=== PATIENT | male | born 1970 | race Caucasian/White ===

== ENCOUNTER 2021-02-09 06:29 | Day surgery (SDC) | payer BC ==
[2021-02-08 16:36] LABS: Potassium 3.5 mmol/L (3.5-5.1)
[2021-02-08 16:52] LABS: Absolute Lymphocytes (CBC) 2.1 K/uL (0.7-4.9); Basophils % 0.8 % (0-1.3); Hematocrit 50.8 % (39.6-49.0); Lymphocytes % 30.3 % (15.3-44.8); MPV 7.9 fL (7.6-11.3); RBC Red Blood Cell Count 5.72 M/uL (4.33-5.43)
[2021-02-08 17:28] LABS: Urine Appearance CLEAR; Urine Bilirubin NEGATIVE (NEG); Urine Blood TRACE (NEG); Urine Color YELLOW; Urine Glucose NEGATIVE (NEG); Urine Protein NEGATIVE (NEG); Urine Urobilinogen 0.2 mg/dL (0.2-1.0); Urine pH 6.5 (5.0-7.0)
[2021-02-08 17:30] LABS: Urine Microscopic Reflex ORDER UMIC
[2021-02-08 17:51] LABS: Urine Bacteria <20 /HPF (NONE SEEN); Urine RBC <5 /HPF (NONE SEEN)
[2021-02-09] MEDS ORDERED: Ringers Lactate 1,000 ML IV ONE (07:02)
[2021-02-09] MEDS ORDERED: CEFAZOLIN/SWI 1gm 0 GM/0 ML SYR ONE (07:03)
[2021-02-09] MEDS ORDERED: Gentamicin Inj 240 MG in NA CHLORIDE 0.9% 100 ML IV ONE (07:15)
[2021-02-09] MEDS ORDERED: AMPICILLIN SODIUM 2 GM in NA CHLORIDE 0.9% 100 ML IVPB ONE (07:15)
[2021-02-09] MEDS ORDERED: propofoL 200 MG/20 ML VIAL IV ONE (07:30)
[2021-02-09] MEDS ORDERED: FENTANYL CITR 100 MCG/2 ML ONE ×2 (07:31→08:19)
[2021-02-09] MEDS ORDERED: LIDOCAINE 1% MPF 5 ML VIAL ONE (07:31)
[2021-02-09] MEDS ORDERED: MIDAZOLAM HCL 2 MG/2 ML INJ ONE (07:31)
[2021-02-09] MEDS ORDERED: KETOROLAC 30 MG/ML INJ ONE (08:13)
[2021-02-09] MEDS ORDERED: ONDANSETRON 4 MG/2 ML VIAL ONE (08:19)
[2021-02-09] MEDS ORDERED: NS 0.9% VIAL 10 ML ONE (08:29)
[2021-02-09] MEDS ORDERED: EPHEDRINE SULF 50 MG/ML VIAL ONE (08:29)
--- NOTE | 2021-02-09 08:48 | RAD REPORT ---
EXAM DESCRIPTION: RAD - Urethrocystogrphy Retrograde - 02/09/2021 8:33 am CLINICAL HISTORY: ICD N 20.0 FINDINGS: Seventeen fluoroscopic spot images obtained. Fluoroscopy time 0.16 minutes Left ureter was cannulated and contrast administered. Subsequently an ureteral stent was placed. Exam ination was performed by Dr Meier
[2021-02-09] MEDS: PHENAZOPYRIDINE 100MG TAB PO ONE (09:12)
[2021-02-09] MEDS: HYDROCODONE/APAP 5/325 MG TAB PO PRN (09:20)
[2021-02-09] MEDS ORDERED: PHENAZOPYRIDINE 100MG TAB PO ONE ×2 (09:28→09:33)
[2021-02-09] MEDS ORDERED: HYDROCODONE/APAP 5/325 MG TAB ONE (09:34)
[2021-02-09 09:57] VITALS: BP 127/85; TEMP 96.2; O2SAT 97
--- NOTE | 2021-02-09 10:21 | RAD REPORT ---
EXAM DESCRIPTION: RAD - Abdomen 1 View (KUB) - 02/09/2021 7:12 am CLINICAL HISTORY: Abdomen pain. FINDINGS: The bowel gas pattern is unremarkable. Small calcifications are present within the pelvis. They will may represent phleboliths. One could re present an ureteral calculus however.
--- NOTE | 2021-02-09 11:10 | OP ---
Surgeon: JULIO BRYANT Preoperative Diagnoses: 1.Left lower quadrant and flank pain. 2.Left ureterolithiasis. Postoperative Diagnoses: 1.Left lower quadrant and flank pain. 2.Left ureterolithiasis. 3.Prostatic urethral calculus. Principal Procedures: 1.Cystoscopy. 2.Removal of tiny prostatic urethral calculus. 3.Left retrograde pyelography. 4.Left distal ureteroscopy. 5.Left ureteral stent placement. Indication For Procedure: Mr. Oneil is a 50-year-old gentleman, who presented to the Urology Clinic originally several months back in October and November with left flank pain and a 4 mm mid proximal u reteral calculus. He had a period where there was significant relief of his pain, though he failed t o collect the calculus and a repeat CT scan done at [facility] was read as no stones seen in his co llecting systems bilaterally or ureters. As a result, because I did not have direct access to review the images at that time, he was presumed to have passed the stone and since he had no further pain, he was discharged from the clinic with followup as necessary. He subsequently [facility] pain and I reviewed the images, at this time I had access electronicall y. Within the mid proximal ureter, a 4 mm calculus was noted to be persistent without significant hy dronephrosis or hydroureter. The radiologist at [facility] was contacted and did make a correction to their report. I counseled the patient on the presence and persistence of the stone, which likely may be causing his left flank pain, and recommended operative evaluation. Procedure In Detail: The patient was consented in the preoperative holding area before being transfe rred to the operative suite where general anesthesia was induced. He was given gentamicin and ampici llin IV antimicrobial prophylaxis, and pneumo boots were provided for DVT prophylaxis. He was placed in the lithotomy position, padded and secured to the table appropriately. The case was begun using a 22-Cook Islander rigid cystoscope to traverse the urethra and into the bladder with ease after prepping an d draping him in standard fashion using Hibiclens. Within the prostatic urethra proximal to the veru montanum, a small prostatic urethral calculus was noted just beneath a very superficial layer of muco sa. As a result, I utilized a flexible alligator grasper via the cystoscope to grasp and remove this calculus. I then continued entry into the bladder, which was briefly surveyed. There were no mucos al lesions, foreign bodies, or stones noted. The ureteral orifices were orthotopic in location, and there was efflux of urine on the left side, though the jet was somewhat weak in appearance. I thus u tilized a 5-Cook Islander ureteral access catheter and the tip of the Sensor wire to gain access into the ur eteral orifice on the left side. I removed the Sensor wire and performed a retrograde pyelogram. Left retrograde pyelography: Using a 70:30 mixture of Omnipaque and saline, contrast was injected via the 5-Cook Islander ureteral access catheter and did propagate up a relatively nondilated left ureteral system before entering a nondila south renal pelvis with sharp calices. While there was no significant suspicion of obstruction, given the absence of significant hydroureteronephrosis on CT, this was not a surprise. As a result, I pass ed a Sensor wire via the 5-Cook Islander ureteral access catheter into the collecting system where a coil wa s observed in the upper pole of the left kidney. Because the ureteral orifice was somewhat stenotic, I then utilized an 810 dilator to attempt to dilate it. I was only able to dilate within a couple o f centimeters of the ureteral orifice before point of stenosis prohibited further passage of the 10-F rench dilator. I then removed the 810 dilator leaving the Sensor wire in place. I then passed a trang i-rigid ureteroscope under direct vision via the urethra and into the ureteral orifice. I navigated the ureteroscope into the mid distal ureter up to the level of the pelvic inlet where a significant u reteral stone prohibited further comfortable passage of the ureteroscope. Despite pressurized irriga tion, I was unable to visualize any further proximally. I turned off the flow of irrigation in an ef fort to see if the stone might descend into the vision of the scope, but this did not occur. As a re sult, I then passed a Bentson guidewire via the semi-rigid ureteroscope and into the collecting syste m on the left side with a coil observed fluoroscopically along the indwelling Sensor wire. I then re moved the semi-rigid ureteroscope and attempted to pass a ureteral access sheath. The access sheath would again only pass within a cm or 2 of the ureteral orifice before point of stricture/stenosis pro hibited further passage of the access sheath. As a result, trying to pass the flexible ureteroscope was also thwarted and I was unable to visualize beyond the intramural ureter on the left side with a flexible ureteroscope. As a result, further attempts at ureteroscopy were aborted, and I removed the ureteral access sheath and the ureteroscope. I then back-loaded the cystoscope over the indwelling safety wire and placed a 6-[place] Islander by 26 cm double-J left ureteral stent into the collecting system wi th a coil observed fluoroscopically within the upper pole and 1 cystoscopically within the bladder. The bladder was then decompressed of fluid and urine, and the patient was taken out of the lithotomy position. He was then awakened from general anesthesia, transferred to a stretcher, and then transfe rred to the recovery room in good condition. Complications: None. Discharge Disposition: To be certain of the absence of any ongoing ureteral calculus related partial or intermittent obstruction, I recommend completion ureteroscopy on followup within the next few wee ks. Since he has no significant obstruction, an ultrasound would improve or would have proven useles s in this endeavor, and a KUB obtained preoperatively was unlikely to identify a 4 mm ureteral calcul us at the outset. While a repeat CT scan would definitively potentially show the presence of a calcu mike, given the 4 mm size, a repeat CT scan may also miss it alongside an indwelling stent as a result , repeat operative evaluation with definitive ureteroscopy and pyeloscopy is strongly recommended. H e should be scheduled for return evaluation with preop urine culture obtained. Follow up in the Urol ogy Clinic prior to that his or maybe at the patient's discretion. DEB/JERI Voice ID: [id number] Report ID: [id number]
== END 2021-02-09 09:47 | disposition home or self-care (01) ==
LOC: OR 06:29
PROVIDERS: ATTEND Urology
PROC: 0TCD8ZZ Extirpation of Matter from Urethra, Via Natural or Artificial Opening Endoscopic (ICD-10-PCS; 2021-02-09)
PROC: 0T778DZ Dilation of Left Ureter with Intraluminal Device, Via Natural or Artificial Opening Endoscopic (ICD-10-PCS; principal; 2021-02-09 07:30)
DX: N20.1 Calculus of ureter (principal); N21.1 Calculus in urethra; R10.32 Left lower quadrant pain; Z20.822 Contact with and (suspected) exposure to COVID-19
CPT/HCPCS: 93005 ×2; 87088; 85025; 87086; 80048; 36415; 74018; 74450; 51610; 52310; 52332; 52351; U0003; J2704; J1580; J2250; J3010 ×2; J7120; J2405; J0290; 81003; 81015; J0690

== ENCOUNTER 2021-02-14 06:08 | Day surgery (SDC) | payer BC ==
[2021-02-14] MEDS ORDERED: Ringers Lactate 1,000 ML IV ONE ×2 (06:57→07:39)
[2021-02-14] MEDS ORDERED: CEFAZOLIN/SWI 2gm 2 GM/20 ML SYR ONE (06:58)
[2021-02-14] MEDS ORDERED: dexAMETHasone 10 MG/ML VIAL ONE (07:25)
[2021-02-14] MEDS ORDERED: propofoL 200 MG/20 ML VIAL IV ONE (07:25)
[2021-02-14] MEDS ORDERED: KETOROLAC 30 MG/ML INJ ONE (07:25)
[2021-02-14] MEDS ORDERED: LIDOCAINE 1% MPF 5 ML VIAL ONE (07:25)
[2021-02-14] MEDS ORDERED: MIDAZOLAM HCL 2 MG/2 ML INJ ONE (07:25)
[2021-02-14] MEDS ORDERED: FENTANYL CITR 250 MCG/5 ML ONE (07:25)
[2021-02-14] MEDS ORDERED: ONDANSETRON 4 MG/2 ML VIAL ONE (07:26)
[2021-02-14] MEDS ORDERED: ROCURONIUM 50 MG/5 ML VIAL IV ONE (07:26)
[2021-02-14] MEDS ORDERED: Phenylephrine HCl 10 MG/ML 1 ML VIAL ONE (07:33)
[2021-02-14] MEDS ORDERED: NA CHLORIDE 0.9% 50 ML ONE (07:34)
[2021-02-14] MEDS ORDERED: CEFAZOLIN/SWI 1gm 1 GM/10 ML SYR ONE (07:39)
[2021-02-14 08:17] LABS: Urine Appearance CLOUDY (Clear); Urine Bilirubin NEGATIVE (NEG); Urine Blood 3+ (Negative); Urine Color DK YELLOW (Yellow); Urine Glucose NEGATIVE (Negative); Urine Protein 2+ (NEG); Urine Specific Gravity 1.015 (1.005-1.030); Urine Urobilinogen 0.2 mg/dL (0.2-1.0)
[2021-02-14 08:35] LABS: Urine Microscopic Reflex ORDER UMIC
[2021-02-14 08:40] LABS: Urine RBC >50 /HPF (NONE SEEN)
[2021-02-14 08:41] LABS: Urine Bacteria <20 /HPF (NONE SEEN)
--- NOTE | 2021-02-14 09:27 | RAD REPORT ---
EXAM DESCRIPTION: RAD - Urethrocystogrphy Retrograde - 02/14/2021 8:28 am CLINICAL HISTORY: LEFT URETEROSCOPY, STENT EXCHANGE COMPARISON: Urethrocystogrphy Retrograde dated 02/09/2021 FINDINGS: Total fluoro time: 0.13 minutes
[2021-02-14 10:26] VITALS: O2SAT 99
[2021-02-14 10:27] VITALS: BP 136/85; TEMP 96.5
--- NOTE | 2021-02-14 11:10 | OP ---
Surgeon: JULIO BRYANT Preoperative Diagnosis: Left ureterolithiasis. Postoperative Diagnoses: 1.Left nephrolithiasis. 2.Left distal ureteral stricture disease. Principle Procedures: 1.Cystoscopy. 2.Left retrograde pyelography. 3.Left ureteroscopy and pyeloscopy. 4.Left laser lithotripsy of 3 mm intrarenal calculus. 5.Left ureteral stent exchange. Indication For Procedure: Mr. Oneil presented to the Urology Clinic after having been seen earlier t his year and at the end of last year with obstructive mid distal ureterolithiasis. His pain resolved and he had a CT scan that initially was read from [facility] as him having passed the calculus. T he patient returned in followup earlier this month/the end of December with complaints of recurrent l eft lower quadrant pain, and this time I was able to review the images directly from [facility], an d I found that a mid distal left ureteral calculus was indeed present at the time of the CT scan perf ormed in November. Because of the potential for this being the source of his recurrent left lower keyanna drant pain, I recommended definitive evaluation as several months had elapsed at this time. He under went cystoscopy and attempted ureteroscopy 4 days ago, on last with inability to access the mid and proximal ureter due to narrowing in the mid distal ureter. As a result, a 6-Monegasque by 26 cm ureteral stent was placed. In the interim, he had significant issues with stent discomfort and urina ry frequency despite attempted management with oxybutynin extended release 5-10 mg. As a result, he was rescheduled for definitive operative management today. Procedure In Detail: The patient was consented in the preoperative holding area before being transfe rred to the operative suite where general anesthesia was induced. He was given Ancef 2 g IV antimicr obial prophylaxis, and pneumo boots were provided for DVT prophylaxis. His genitalia were prepped us ing Hibiclens and he was placed in the lithotomy position, padded and secured to the table [facility]. He was draped in standard fashion, and the case was begun following a time-out using a 22-Frenc h rigid cystoscope to traverse the urethra and into the bladder. The stent was noted to emanate from the left ureteral orifice and was in correct position. I grasped the stent using an alligator grasp er and was able to deliver it via the meatus. The tip of the stent was remaining within the mid uret er as observed fluoroscopically and I passed a Sensor wire via the stent with a coil observed putjuan alberto flood within the renal pelvis or upper pole of the kidney. Over the Sensor wire, I passed a dual-lumen catheter and performed a retrograde pyelogram. Left retrograde pyelography: Using a 70:30 mixture of Omnipaque and saline, contrast was injected via the second lumen of the dual -lumen catheter and did propagate with ease up and delineate each of the calices and renal pelvis ind icating appropriate positioning of the wires. As such, via the second lumen of the dual-lumen cathet er, I placed a Bentson guidewire alongside the indwelling Sensor wire which coiled in the upper pole of the kidney. I then removed the dual-lumen catheter and attempted to pass a flexible ureteroscope over the Bentson guidewire. The flexible ureteroscope was able to pass into the mid distal ureter before reaching a point of obst ruction where it would no longer pass over the Bentson guidewire. As a result, I performed direct vi sualization of the area and there was a tightening or narrowing in that area indicative of nonocclusi ve stricture disease. I employed a Superstiff wire via the ureteroscope to be able to pass the flexi ble ureteroscope over a more stiff guide post, and I was successfully able to navigate the ureterosco pe all the way into the upper pole of the kidney. The Superstiff wire was removed and I surveyed eac h of the calices of the kidney. Within the midpole superior calyx, an approximately 3 mm calculus wa s noted. Using a 271 nm laser fiber, I quickly fragmented the calculus into dust less than 1 mm in s ize. I then resurveyed each of the calices, and when no additional stone fragments were noted, I the n surveyed the renal pelvis down through the proximal and mid ureter before reaching again a point of significant narrowing in the mid distal ureter at the same point as had been observed fluoroscopical ly upon initial placement of the dual-lumen catheter. Again, this narrowing was nonocclusive, but wa s functionally somewhat obstructive. I continued to survey via the distal ureter and the ureteropelv ic junction on the way out. No additional stones were noted along the course of the ureter. As a re sult, I extracted the ureteroscope and back-loaded the cystoscope over the indwelling safety wire. I then elected to pass an 8-Monegasque by 26 cm double-J stent over the indwelling safety wire with a coi l observed fluoroscopically within the renal pelvis and 1 cystoscopically within the bladder. The pu rpose of the 8-Monegasque was to attempt to passively dilate and hopefully prevent functional stricture d isease formation in the mid distal ureter. The patient's bladder was decompressed of fluid and urine , and he was awakened from general anesthesia after being taken out of the lithotomy position. He wa s then transferred to a stretcher and then to the recovery room in good condition. Complications: None. Discharge Disposition: Hopefully, he can tolerate the stent a little bit better at this time as I wo uld like to leave it for at least 2 weeks prior to planned operative cystoscopy and ureteral stent ex traction in the office. If he continues to be miserable despite increasing doses of Ditropan extende d-release up to 10 or even 15 mg daily, after at least 3-5 days, we may extract the stent. DEB/DANIELITOL Voice ID: [id number] Report ID: [id number]
== END 2021-02-14 10:53 | disposition home or self-care (01) ==
LOC: OR 06:08
PROVIDERS: ATTEND Urology
PROC: 0T778DZ Dilation of Left Ureter with Intraluminal Device, Via Natural or Artificial Opening Endoscopic (ICD-10-PCS; 2021-02-14)
PROC: 0TF48ZZ Fragmentation in Left Kidney Pelvis, Via Natural or Artificial Opening Endoscopic (ICD-10-PCS; principal; 2021-02-14 07:30)
DX: N20.0 Calculus of kidney (principal); N13.5 Crossing vessel and stricture of ureter without hydronephrosis
CPT/HCPCS: 87088; 87086; 74450; 51610; 52356; J2704; J2370; J2250; J3010; J1100; J0690 ×2; J7120 ×2; J2405; 81003; 81015

== ENCOUNTER 2022-08-07 11:36 | Emergency (ER) | payer BC ==
--- OUTSIDE RECORDS SUMMARY | 2022-08-07 11:40 | XMS REPORT | Continuity of Care Document ---
:1970 Author Organization [facility] t Address [address] [place] [address] Care Team Providers Name Role Phone Mary Arzate MD Primary Care Physician STEVE CASTORENA Attending Clinician Unavailable Steve Castorena MD Attending Clinician KATIE AVILA Attending Clinician Unavailable Nurse, [facility] Attending Clinician Unavailable Unknown, Attending Attending Clinician Unavailable Jyoti Almodovar MD Attending Clinician Patrice Greco Attending Clinician Unavailable Nico Blue MD Attending Clinician [phone] Brandan Slaughter MD Attending Clinician Brittani Love MA Attending Clinician Unavailable Angel Martinez MD Attending Clinician [phone] Vincenzo Peña MD Attending Clinician Mary Arzate Admitting Clinician Unavailable BRANDAN SLAUGHTER Admitting Clinician Unavailable Payers Payer Name Policy Type Policy Number Effective Date Expiration Date S [facility] [id number] 2015 00:00:00 Problems Condition Condition Condition Status Onset Resolution Last Treating Co mments Source Name Details Category Date Date Treatment Clinician Date Other tear Other tear Disease Active M ethodi of medial of medial 1-29 st meniscus, meniscus, 00:00: Hosp letha current current 00 l injury, injury, right right knee, knee, initial initial encounter encounter Knee Knee Disease Active Methodi strain, strain, 3-18 st right, right, 00:00: Hospita initial initial 00 l encounter encounter 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 2-25 st disease of disease of 00:00: Ho spita right right 00 l acromiocla acromiocla vicular vicular joint joint Encounter Encounter Disease Active Met [facility] for 2-25 st orthopedic orthopedic 00:00: Ho spita follow-up follow-up 00 l care care Partial Partial Disease Active Methodi nontraumat nontraumat 827 st ic tear of ic tear of 00:00: Ho spita rotator rotator 00 l cuff, cuff, right right Acute pain Acute pain Disease Active 2016-11 M ethodi of right of right 0-02 st shoulder shoulder 00:00: Hospit a 00 l No known No known Disease Unive rs active active ity of problems problems [facility] Allergies, Adverse Reactions, Alerts Allergy Allergy Status Severity Reaction(s) Onset Inactive Treating Comm ents Source Name Type Date Date Clinician No Known DA Active U 2020-11 [facility] [address] [facility] [place] [place] No Known DA Active U 2020-11 [facility] Allergie 0-13 [facility] 00:[facility] Hospita [address] [facility] [place] [place] No Known DA Active U 2020-11 [facility] Allergie 0-13 [facility] 00:[facility]: Hospita [address] [facility] [place] [place] NO KNOWN Drug Active Univers ALLERGIE Class ity of [facility] [place] [facility] Family History Family Member Diagnosis Comments Start Date Stop Date Source Natural mother No Known Problems [facility] Social History Social Habit Start Date Stop Date Quantity Comments Source Exposure to 2022-07-25 2022-08-04 Not sure University of SARS-CoV-2 00:00:00 09:58:00 [place] [facility] (event) [facility] Tobacco use and 2020-12-22 2020-12-22 Never used [facility] exposure 00:00:00 00:00:00 Alcohol intake 2020-12-22 2020-12-22 Current [facility] 00:00:00 00:00:00 non-drinker of alcohol (finding) Sex [birth year] [facility] 00:00:00 00:00:00 Smoking Status Start Date Stop Date Source Never smoked tobacco [facility] Medications Ordered Filled Start Stop Current Ordering Indication Dosage Frequency Signature Comments Components Source Medication Medication Date Date Medication? Clinician (SIG) Name Name lactated No 1000mL at 999 Univ ers ringers IV 08-04 mL/hr, ity of infusion 17:45: 19:13 1,000 mL, Mukesh as 1,000 mL 00 :00 IV Medical Infusion, Branch ONCE, 1 dose, On 08/04/22 at 1245, NORBERTO NaCl 0.9% 2021- No 1000mL at 999 Uni vers (NS) IV 08-04 mL/hr, ity of infusion 17:30: 17:46 [place] 1,000 mL 00 :00 s, ONCE, 1 Medic al dose, On Branch 08/04/22 at 1230, NORBERTO iopamidol 2021- No [id number] 65mL 65 mL, Univers (ISOVUE 08-04 Intravenou ity o f 370-500 mL) 17:00: 17:00 s, ONCE, 1 [place] injection 00 :00 dose, On Medica l 65 mL Sat Branch 08/04/22 at 1200, Routine ketorolac 2021- No 15mg 15 mg, Unive rs (TORADOL) 08-04 Slow IV ity of injection 16:00: 15:58 Push, [place] 15 mg 00 :00 ONCE, 1 Medical dose, On Branch 08/04/22 at 1100, NORBERTO NaCl 0.9% 2021- No 1000mL at 999 Uni vers (NS) IV 08-04 mL/hr, ity of infusion 16:00: 16:40 [place] 1,000 mL 00 :00 s, ONCE, 1 Medic al dose, On Branch 08/04/22 at 1100, NORBERTO omeprazole 2021- No 40mg Take 40 mg Univers (PRILOSEC) 08-04 by mouth ity of 40 mg 14:05: 00:00 daily. [place] capsule 24 :00 Medical Branch Pseudoephed 202- No 1{capsu Take 1 Cap Univers rine-Ibupro 08-04 le} by mouth ity of fen (ADVIL 10:54: 00:00 as needed. [place] COLD & 00 :00 Medical SINUS) Branch 30-200 mg Cap omeprazole Yes 40mg Take 40 mg U nivers (PRILOSEC) 08-04 by mouth ity o f 40 mg 09:27: daily. [facility] 17 Medical Branch Pseudoephed Yes 1{capsu Take 1 Cap Univers rine-Ibupro 08-04 le} by mouth ity of fen (ADVIL 09:27: as needed. [place] COLD & 17 Medical SINUS) Branch 30-200 mg Cap ondansetron Yes [id number] 4mg Take 1 Univers 4 mg 08-04 tablet by ity of disintegrat 00:00: mouth [place] ing tablet 00 every 8 Medica l (eight) Branch hours as needed for Nausea and Vomiting (N/V). omeprazole 2020-11 Yes 10mg QD Take 10 mg M ethodi (PriLOSEC) 1-[address] 10 MG 13:47: daily. Hospita capsule 35 l meloxicam 2020-11- No 15mg QD Take 1 Metho di (Mobic) 15 1-15 12-16 tablet (15 st mg tablet 00:00: 05:59 mg total) Ho spita 00 :00 by mouth l daily for 30 days. omeprazole Yes 10mg QD Take 10 mg M ethodi (PriLOSEC) 1-[address] 10 MG 16:54: daily. Hospita capsule 18 l promethazin 2020- No 25mg Q6H Take 1 Met hodi e 1-25 02-25 tablet (25 st (PHENERGAN) 00:00: 05:59 mg total) Hospita 25 MG 00 :00 by mouth l tablet every 6 (six) hours as needed for nausea or vomiting for up to 30 days. HYDROcodone 2020- No [id number] 1{tbl} Q6H Take 1 Methodi -acetaminop 12-[address] tripp (Romney) 00:00: 05:59 mouth Hosp letha 5-325 mg 00 :00 every 6 l per tablet (six) hours as needed for moderate pain for up to 10 days .acute pain. Max Daily Amount: 4 tablets cephalexin 2020- No 500mg Q.[id number] Take 1 Methodi (Keflex) 12-12 [id number] capsule s t 500 MG 00:00: 05:59 3D (500 mg Hospita capsule 00 :00 total) by l mouth 3 (three) times a day for 2 days. Surgery day and day after ondansetron 2019-11- No 4mg 4 mg, Slow Univers (ZOFRAN 12-16 IV Push, ity of (PF)) 19:00: 17:52 ONCE, 1 [place] injection 4 00 :00 dose, Sun Med ical mg 10/16/20 Branch at 1300, NORBERTO FENTanyl PF 2019-11- No 50ug 50 mcg, Un claudette (SUBLIMAZE 12-16 Slow IV ity o f (PF)) 19:00: 17:52 Push, [place] injection 00 :00 ONCE, 1 Medical 50 mcg dose, Sun Branch 10/16/20 at 1300, Routine ondansetron 2019-11- No 4mg 4 mg, Slow Univers (ZOFRAN 12-16 IV Push, ity of (PF)) 18:00: 16:52 ONCE, 1 [place] injection 4 00 :00 dose, Sun Med ical mg 10/16/20 Branch at 1200, NORBERTO ketorolac 2019-11- No 30mg 30 mg, Unive rs (TORADOL) 12-16 Slow IV ity of injection 18:00: 16:53 Push, [place] 30 mg 00 :00 ONCE, 1 Medical dose, Sun Branch 10/16/20 at 1200, Routine
aboriginal community council member approving Restricted medication : VINCENZO PEÑA traMADoL 2019-11 Yes [id number] 50mg Take 1 Univers (ULTRAM) 50 1-29 tablet by ity of mg tablet 00:00: mouth [place] 00 every 6 Medical (six) Branch hours as needed for Pain (scale 7-10). Indication s: acute pain ketorolac 2019-11 Yes [id number] 10mg Take 1 Un claudette 10 mg 1-29 tablet by ity of tablet 00:00: mouth [place] 00 every 6 Medical (six) Branch hours as needed (ALTERNATE WITH ULTRAM FOR PAIN). tamsulosin 2019-11 Yes [id number] .4mg Take 1 U nivers 0.4 mg 24 1-29 capsule by ity of hr capsule 00:00: mouth at Mukesh as 00 bedtime. Medical Branch ondansetron 2019-11 Yes [id number] 4mg Take 1 Univers (ZOFRAN) 4 1-29 tablet by ity of mg tablet 00:00: mouth [place] 00 every 8 Medical (eight) Branch hours as needed for Nausea and Vomiting (N/V). traMADoL 2019-11 Yes [id number] 50mg Take 1 Univers (ULTRAM) 50 1-29 tablet by ity of mg tablet 00:00: mouth [place] 00 every 6 Medical (six) Branch hours as needed for Pain (scale 7-10). Indication s: acute pain ketorolac 2019-11 Yes [id number] 10mg Take 1 Un claudette 10 mg 1-29 tablet by ity of tablet 00:00: mouth [place] 00 every 6 Medical (six) Branch hours as needed (ALTERNATE WITH ULTRAM FOR PAIN). tamsulosin 2019-11 Yes [id number] .4mg Take 1 U nivers 0.4 mg 24 1-29 capsule by ity of hr capsule 00:00: mouth at Mukesh as 00 bedtime. Medical Branch ondansetron 2019-11 Yes [id number] 4mg Take 1 Univers (ZOFRAN) 4 1-29 tablet by ity of mg tablet 00:00: mouth [place] 00 every 8 Medical (eight) Branch hours as needed for Nausea and Vomiting (N/V). ketorolac 2019-11- No [id number] 10mg Take 1 U nivers 10 mg 1-29 09-17 tablet by ity of tablet 00:00: 00:00 mouth [place] 00 :00 every 6 Medical (six) Branch hours as needed (ALTERNATE WITH ULTRAM FOR PAIN). tamsulosin 2019-11- No [id number] .4mg Take 1 Univers 0.4 mg 24 12-16 capsule by ity of hr capsule 00:00: 00:00 [place] :00 bedtime. Medical Branch ondansetron 2019-11- No [id number] 4mg Take 1 Univers (ZOFRAN) 4 12-16 tablet by ity of mg tablet 00:00: 00:00 mouth [place] 00 :00 every 8 Medical (eight) Branch hours as needed for Nausea and Vomiting (N/V). traMADoL 2019-11- No [id number] 50mg Take 1 Univer s (ULTRAM) 50 12-16 tablet by it y of mg tablet 00:00: 00:00 mouth [place] 00 :00 every 6 Medical (six) Branch hours as needed for Pain (scale 7-10). Indication s: acute pain diclofenac 2017-11 Yes 75mg Take 1 Unive rs 75 mg EC 1-15 tablet by ity of tablet 00:00: mouth 2 (two) Medical times Branch daily with meals. diclofenac 2017-11 Yes 75mg Take 1 Unive rs 75 mg EC 1-15 tablet by ity of tablet 00:00: mouth 2 00 (two) Medical times Branch daily with meals. diclofenac 2017-11 No 75mg Take 1 Univ ers 75 mg EC 1-15 08-04 tablet by ity o f tablet 00:00: 00:00 mouth 2 [place] 00 :00 (two) Medical times Branch daily with meals. naproxen Yes 375mg Take 1 Univer s 375 mg EC 7-28 tablet by ity o f tablet 00:00: mouth 2 (two) Medical times Branch daily with meals. naproxen Yes 375mg Take 1 Univer s 375 mg EC 7-28 tablet by ity o f tablet 00:00: mouth 2 00 (two) Medical times Branch daily with meals. naproxen 2021- No 375mg Take 1 Unive rs 375 mg EC 7-28 08-04 tablet by ity of tablet 00:00: 00:00 mouth 2 [place] 00 :00 (two) Medical times Branch daily with meals. Pseudoephed Yes 1{capsu Take 1 Cap Univers rine-Ibupro 6-28 le} by mouth ity of fen (ADVIL 18:53: as needed. [place] COLD & 00 Medical SINUS) Branch 30-200 mg Cap omeprazole 2017-0 Yes 40mg Take 40 mg U nivers (PRILOSEC) 6-28 by mouth ity o f 40 mg 18:52: daily. [place] capsule [address] [facility] Branch Immunizations Ordered Immunization Filled Immunization Date Status Commen ts Source Name Name PFIZER COVID-19 MRNA 2021-03-21 Completed Meth odist VACCINATION 00:00:00 [facility] PFIZER COVID-19 MRNA 2021-03-21 Completed Meth odist VACCINATION 00:00:00 [facility] PFIZER COVID-19 MRNA 2021-02-28 Completed Meth odist VACCINATION 00:00:00 [facility] PFIZER COVID-19 MRNA 2021-02-28 Completed Meth odist VACCINATION 00:00:00 Hospital Vital Signs Vital Name Observation Time Observation Value Comments Source Systolic blood 2022-08-04 19:14:35 117 mm[Hg] Univer sity of pressure [facility] Diastolic blood 2022-08-04 19:14:35 75 mm[Hg] Unive rsity of [facility] Heart rate 2022-08-04 19:14:35 100 /min [facility] Respiratory rate 2022-08-04 19:14:35 16 /min [facility] Oxygen saturation in 2022-08-04 19:14:35 97 /min [facility] Arterial blood by [facility] Pulse oximetry Branch Body temperature 2022-08-04 15:00:00 36.83 Landy [facility] Body height 2022-08-04 15:00:00 188 cm [facility] Body weight 2022-08-04 15:00:00 99.338 kg [facility] BMI 2022-08-04 15:00:00 28.12 kg/m2 [facility] Systolic blood 2022-08-04 14:39:00 127 mm[Hg] Univer sity of [facility] Diastolic blood 2022-08-04 14:39:00 79 mm[Hg] Unive rsity of [facility] Heart rate 2022-08-04 14:39:00 135 /min [facility] Body temperature 2022-08-04 14:39:00 36.78 [facility] 2022-08-04 14:39:00 17 /min Univ ersity of [facility] Body height 2022-08-04 14:39:00 188 cm Universi ty of [facility] Body weight 2022-08-04 14:39:00 99.338 kg Universi ty [facility] BMI 2022-08-04 14:39:00 28.12 kg/m2 Universi ty [facility] Oxygen saturation in 2022-08-04 14:39:00 95 /min University of Arterial blood by [facility] Pulse oximetry Branch Systolic blood 2020-10-16 18:00:00 119 mm[Hg] Univer sity of pressure [facility] Diastolic blood 2020-10-16 18:00:00 87 mm[Hg] Unive rsity of [facility] Heart rate 2020-10-16 18:00:00 87 /min Universi ty [facility] Respiratory rate 2020-10-16 18:00:00 20 /min [facility] O[facility] in 2020-10-16 18:00:00 98 /min University of Arterial blood by [facility] Pulse oximetry Branch Body temperature 2020-10-16 16:27:[address] [facility] [place] [facility] height 2020-10-16 16:27:00 188 cm Universi ty [facility] Body weight 2020-10-16 16:27:00 99.791 kg Universi ty [facility] BMI 2020-10-16 16:27:00 28.25 kg/m2 [facility] Body height 2020-12-22 15:15:00 188 [facility] Body weight 2020-12-22 15:15:00 101.606 kg [facility] BMI 2020-12-22 15:15:00 28.76 kg/m2 [facility] Systolic blood 2020-12-16 16:33:00 125 mm[Hg] Method ist [facility] pressure Diastolic blood 2020-12-16 16:33:00 92 mm[Hg] Metho dist [facility] pressure Heart rate 2020-12-16 16:33:00 94 /min [facility] Body temperature 2020-12-16 16:33:00 36.22 Landy Meth odist [facility] Respiratory rate 2020-12-16 16:33:00 17 /min [facility] Oxygen saturation in 2020-12-16 16:33:00 98 /min [facility] Arterial blood by Pulse oximetry Procedures Procedure Date / Time Performing Clinician Source Performed URINALYSIS 2022-08-04 16:41:00 Steve Castorena [facility] [place] [facility] CT ABDOMEN PELVIS W 2022-08-04 16:10:17 Steve Castorena [facility] Branch LIPASE 2022-08-04 15:15:00 Steve Castorena [facility] [place] [facility] COMP. METABOLIC PANEL 2022-08-04 15:15:00 Steve Castorena [facility] ([id number]) [facility] CBC WITH DIFF 2022-08-04 15:15:00 Steve Castorena [facility] [place] [facility] CONSENT/REFUSAL FOR 2022-08-04 14:55:22 Doctor Unassigned, [facility] DIAGNOSIS AND TREATMENT [facility] Branch ORTHOPEDIC INJURY 2021-10-02 20:19:18 Jyoti Almodovar [facility] TREATMENT UT INJECT TENDON 2021-10-02 20:18:34 Jyoti Almodovar ospital SHEATH/LIGAMENT XR HAND 3+ VW RIGHT 2021-10-02 19:49:37 [facility] AN ELECTIVE 2020-12-16 14:27:38 Almaz Anderson Ho spital SUPRAGLOTTIC AIRWAY OPERATION, KNEE, 2020-12-16 13:59:00 Brandan Slaughter [facility] ARTHROSCOPIC COVID-19 QUALITATIVE 2020-12-14 12:59:00 Brandan Slaughter [facility] RT-PCR MRI LOWER EXTREMITY 2020-11-22 06:00:00 Brandan Slaughter [facility] EXTERNAL STUDY CT ABDOMEN PELVIS WO 2020-10-16 17:08:51 Vincenzo Peña [facility] COMP. METABOLIC PANEL 2020-10-16 16:43:00 Vincenzo Peña [facility] ([id number]) [facility] CBC WITH DIFF 2020-10-16 16:43:00 Vincenzo Peña [facility] [place] [facility] URINALYSIS 2020-10-16 16:43:00 Vincenzo Peña [facility] NOTICE OF PRIVACY 2020-10-16 16:19:59 Doctor Unassigned, [facility] PRACTICES [facility] UT ARTHROCENTESIS 2020-09-19 14:20:00 Brandan Slaughter [facility] ASPIR&/INJ MAJOR JT/BURSA W/O US Plan of Care Planned Activity Planned Date Details Comments Source Future Scheduled 2022-08-04 HEPATITIS B VACCINES [facility] Test 11:25:16 (1 of 3 - 3-dose series) [code = HEPATITIS B VACCINES (1 of 3 - 3-dose series)] Future Scheduled 2022-08-04 Hepatitis C screening [facility] Test 11:25:16 (procedure) [code = 083547195] Future Scheduled 2022-08-04 COLONOSCOPY SCREENING Me [facility] Test 11:25:16 [code = COLONOSCOPY SCREENING] Future Scheduled 2022-08-04 SHINGLES VACCINES (1 Met [facility] Test 11:25:16 of 2) [code = SHINGLES VACCINES (1 of 2)] Future Scheduled 2022-08-04 COVID-19 VACCINE (3 - Me [facility] Test 11:25:16 Booster for Pfizer series) [code = COVID-19 VACCINE (3 - Booster for Pfizer series)] Future Scheduled 2022-08-04 INFLUENZA VACCINE [facility] Test 11:25:16 [code = INFLUENZA VACCINE] Future Scheduled Hepatitis C screening Me [facility] Test (procedure) [code = 377034898] Future Scheduled COLONOSCOPY SCREENING [facility] Test [code = COLONOSCOPY SCREENING] Future Scheduled SHINGLES VACCINES [facility] Test (#1) [code = SHINGLES VACCINES (#1)] Future Scheduled INFLUENZA VACCINE [facility] Test [code = INFLUENZA VACCINE] Encounters Start End Encounter Admission Attending Care Care Encounter Source Date/Time Date/Time Type Type Clinicians Facility Department ID 2021-09-16 Emergency [facility] [id number] Univers 08:02:19 [facility] 2022-08-04 2022-08-04 Emergency X RAFFAELE, [facility] ERT [id number] Univers 10:03:00 14:19:00 STEVE [facility] 2022-08-042022-08-04 Emergency Raffaele, [facility] [id number] Univers 10:03:00 14:19:00 Steve OROZCO 350.1.13.10 ity SONIA 4.2.7.2.686 [facility] [id number] [address] 2022-08-04 2022-08-04 [facility] [id number] Univers 09:30[facility]-04 2022-08-04 Nurse Nurse, [facility] [id number] [facility] 09:30:00 09:45:00 Visit Unknown, Attending HEALTH 350.1.13.10 itnikita denise OROZCO 4.2.7.2.686 [facility] as FERDINAND?BLEA [id number] [address] MEDICAL OFFICE [facility] 2022-08-04 2022-08-04 Outpatient Yariel AVILA [facility] [id number] Univers 09:40:00 09:40:00 KATIE [facility] 2022-08-04 2022-08-04 Outpatient R [facility] [id number] Univers 09:30:00 09:30:00 [id number] [facility] 2021-10-02 2021-10-02 Office Jyoti Almodovar 1.2.840.1 [id number] Methodi 13:20:00 14:25:[address]49[address]1.[address] 3.430.2.7 Hospit a .3.421547 l .8 2021-10-02 2021-10-02 Travel 1.2.840.1 [id number] [id number] Methodi 00:00:00 00:00:[address] 3.430.2.7 0.2.7.3.698 Ho spita .3.775716 084.8 l .8 2021-10-02 2021-10-02 Outpatient JYOTI ALMODOVAR [facility] [id number] [place] 00:00:00 00:00:[address] 2021-10-02 2021-10-02 Outpatient JYOTI ALMODOVAR [facility] [id number] [place] 00:00:00 00:00:[address] 2021-09-27 2021-09-27 Outpatient VALENCIA Yañez DAYS [id number] [facility] 05:36:00 05:36:00 Patrice 52 [facility] 2021-08-30 2021-08-30 Inpatient VALENCIA Yañez RADI [id number] [facility] 11:00:00 09:15:00 Patrice 21 [facility] 2021-03-21 2021-03-21 Clinical Mirza, 1.2.840.1 [id number] Methodi 08:03:58 08:07:56 Support Nico 15023.1.[address] P. 3.430.2.7 Hospit a .3.995607 l .8 2021-02-28 2021-02-28 Clinical 1.2.840.1 [id number] Methodi 08:11:00 08:15:[address] 3.430.2.7 Hospit a .3.122442 l .8 2020-12-22 2020-12-22 Office Sukhjinder, 1.2.840.1 [id number] Methodi 09:07:18 09:17:18 Visit Brandan 37705.1.[address] [place] 3.430.2.7 Hospit a .3.515964 l .8 2020-12-22 2020-12-22 Travel 1.2.840.1 1.2.439.520 [id number] Methodi 00:00:00 00:00:[address] 3.430.2.7 0.2.7.3.698 Ho spita .3.110376 084.8 l .8 2020-12-19 2020-12-19 Telephone Ivan, 1.2.840.1 [id number] Methodi 00:00:00 00:00:[address] 3.430.2.7 Hospit a .3.055249 l .8 2020-12-19 2020-12-19 Travel 1.2.840.1 1.2.070.538 [id number] Methodi 00:00:00 00:00:[address] 3.430.2.7 0.2.7.3.698 Ho spita .3.809716 084.8 l .8 2020-12-16 2020-12-16 Hospital [facility], 1.2.840.1 [id number] Methodi 06:06:00 10:50:00 Encounter Brandan 85171.1.[address] [place] 3.430.2.7 Hospit a .3.184082 l .8 2020-12-16 2020-12-16 Surgery [facility], 1.2.840.1 [id number] Methodi 08:00:00 09:15:[address] Sammy 3.430.2.7 Hospit a .3.880648 l .8 2020-12-16 2020-12-16 Anesthesia [facility], 1.2.840.1 [id number] Methodi 07:59:00 08:52:00 Event Angel 67978.1.[address] [place] 3.430.2.7 Hospit a .3.555228 l .8 2020-12-16 2020-12-16 Travel 1.2.840.1 1.2.605.955 [id number] Methodi 00:00:00 00:00:[address] 3.430.2.7 0.2.7.3.698 Ho spita .3.784095 084.8 l .8 2020-12-13 2020-12-13 Travel 1.2.840.1 1.2.450.027 [id number] Methodi 00:00:00 00:00:[address] 3.430.2.7 0.2.7.3.698 Ho spita .3.467861 084.8 l .8 2020-12-12 2020-12-12 [facility] Sukhjinder, 1.2.840.1 [id number] Methodi 00:00:00 00:00:00 Only Brandan 73344.1.[address] [place] 3.430.2.7 Hospit a .3.326234 l .8 2020-12-07 2020-12-07 Travel 1.2.840.1 1.2.191.379 [id number] Methodi 00:00:00 00:00:[address] 3.430.2.7 0.2.7.3.698 Ho spita .3.245886 084.8 l .8 2020-11-30 2020-11-30 Documentat Sukhjinder, 1.2.840.1 [id number] Methodi 00:00:00 00:00:00 ion Brandan 07858.1.[address] Sammy 3.430.2.7 Hospit a .3.853269 l .8 2020-11-23 2020-11-23 [facility], 1.2.840.1 [id number] Methodi 13:45:49 23:59:00 Encounter Brandan 93614.1.[address] [place] 3.430.2.7 Hospit a .3.876838 l .8 2020-11-21 2020-11-21 [facility], 1.2.840.1 [id number] Methodi 00:00:00 00:00:00 Only Brittani 99446.1.[address] 3.430.2.7 Hospit a .3.623116 l .8 2020-10-16 2020-10-16 [facility] 1.2.641.233 [id number] Univers 10:28:00 13:14:00 Vincenzo Orozco 350.1.13.10 Elva 4.2.7.2.686 [facility] [id number] [facility] mei 084 Branch 2020-09-19 2020-09-19 Office Sukhjinder, 1.2.840.1 [id number] Methodi 08:07:11 08:36:19 Visit Brandan 57984.1.[address] [place] 3.430.2.7 Hospit a .3.687692 l .8 2020-09-19 2020-09-19 Travel 1.2.840.1 1.2.087.564 [id number] Methodi 00:00:00 00:00:[address] 3.430.2.7 0.2.7.3.698 Ho spita .3.271553 084.8 l .8 2020-09-08 2020-09-08 Travel 1.2.840.1 1.2.819.565 0243 [id number] Methodi 00:00:00 00:00:[address] 3.430.2.7 0.2.7.3.698 Ho spita .3.729370 084.8 l .8 Results Test Description Test Time Test Comments Results Result Comments Source CBC with Differential 2022-08-04 16:11:23 Test Item Value Reference Range Interpretation Comme nts WBC (test code = 6690-2) See_Comment [A utomated message] The system which ge nerated this result transmit south reference range: 4.20 - 1 0.70 10*3/?L. The reference r gee was not used to interpr et this result as normal/abnor mal. RBC (test code = 789-8) See_Comment H [Au tomated message] The system which AnSyn nerated this result transmit south reference range: 4.26 - 5 .52 10*6/?L. The reference r gee was not used to interpr et this result as normal/abnor mal. HGB (test code = 718-7) 18.9 g/dL 12.2-16.4 H HCT (test code = 4544-3) 54.3 % 38.4-49.3 H MCV (test code = 787-2) 85.8 fL 81.7-95.6 MCH (test code = 785-6) 29.9 pg 26.1-32.7 MCHC (test code = 786-4) 34.8 g/dL 31.2-35 RDW-SD (test code = 52965-9) 40.8 fL 38.5-51.6 RDW-CV (test code = 788-0) 13.2 % 12.1-15.4 PLT (test code = 777-3) See_Comment H [Au tomated message] The system which ge nerated this result transmit south reference range: 150 - 32 8 10*3/?L. The reference range was not used to interpret th is result as normal/abnormal . MPV (test code = 98906-7) 8.9 fL 9.8-13 L NRBC/100 WBC (test code = See_Comment [ Automated message] The 4355007129) system which ge nerated this result transmit south reference range: 0.0 - 10 .0 /100 WBCs. The reference r gee was not used to interpr et this result as normal/abnor mal. NRBC x10^3 (test code = See_Comment [Au tomated message] The 3919994367) system which ge nerated this result transmit south reference range: 10*3/?L. The reference range was not u sed to interpret this result as normal/abnormal . SEG % (test code = 97263-7) 46 % 33-76 BAND % (test code = 78372-1) 28 % 0-1 H LYMPH % (test code = 14 % 14-54 48176-9) MONO % (test code = 51119-2) 12 % 0-4 H ANC (test code = 753-4) 7.05 10*3/uL 1.99-6.95 H TOXIC CHANGES (test code = Present A 803-7) PLT ESTIMATE (test code = Normal Normal 9317-9) Lab Interpretation (test Abnormal code = 13966-5) [facility] Met[facility] [id number] 15:43:18 Test Item Value Reference Range Interpretation Comments NA (test code = 138 mmol/L 135-145 5003154258) K (test code = 4.3 mmol/L 3.5-5 1074091953) CL (test code = 103 mmol/L 98-108 9906151890) CO2 TOTAL (test code = 26 mmol/L 23-31 3010435116) AGAP (test code = 2-16 0191455380) BUN (test code = 30 mg/dL 7-23 H 0291491965) GLUCOSE (test code = 115 mg/dL 70-110 H 1323714098) CREATININE (test code = 1.05 mg/dL 0.6-1.25 5227852341) TOTAL BILI (test code = 1.1 mg/dL 0.1-1.7 9844185374) CALCIUM (test code = 9.4 mg/dL 8.6-10.6 4582351301) T PROTEIN (test code = 6.6 g/dL 6.3-8.2 2391230019) ALBUMIN (test code = 4.4 g/dL 3.5-5 9048444670) ALK PHOS (test code = 82 U/L 34-122 3858665722) ALTv (test code = 47 U/L 5-50 1742-6) AST(SGOT) (test code = 28 U/L 13-40 4122806375) eGFR (test code = mL/min/1.73m2 6663385818) CLAUDY (test code = CLAUDY) Association of Glomerular Filtration Rate (GFR) and Staging of Kidney Disease* + --+ --+ ------+| GFR (mL/min/1.73 m2) ?| With Kidney Damage ?| ?Without Kidney Damage+ --------+ --------+ +| ?>90 ?| ?Stage one ?| ? Normal ?+ ---+ ---+ -------+| ?60-89 ?| ?Stage two ?| ? Decreased GFR ? + --+ --+ ------+| ?30-59 ?| ?Stage three ?| ? Stage three ? + --+ --+ ------+| ?15-29 ?| ?Stage four ? | ? Stage four ?+ ---+ ---+ -------+| ?<15 (or dialysis) ? ?| ?Stage five ? | ? Stage five ?+ ---+ ---+ -------+ *Each stage assumes the associated GFR level has been in effect for at least three months. ?Stages 1 to 5, with or without kidney disease, indicate chronic kidney disease. Notes: Determination of stages one and two (with eGFR >59mL/min/1.73 m2) requires estimation of kidney damage for at least three months as defined by structural or functional abnormalities of the kidney, manifested by either:Pathological abnormalities or Markers of kidney damage (including abnormalities in the composition of the blood or urine or abnormalities in imaging tests). Lab Interpretation Abnormal (test code = 34836-5) [facility] [place] [facility], [id number] 15:42:58 Test Item Value Reference Range Interpretation Comments LIPASE (test code = 7115944561) 31 U/L 0-220 Lab Interpretation (test code = Normal 30175-5) [facility] HospitalSOFT TISSUE,NOT SAWYER/MASS/[id number] 17:01:00 Test Item Value Reference Range Interpretation Comments SOFT TISSUE,NOT SAWYER/MASS/DEBRI (test code = SOFTNOTMLD) RUN DATE: 10/07/21 [facility] PAGE 1 RUN TIME: 0900 Specimen Inquiry RUN USER: INTERFACE PATIENT: MER REYES LOC: BrinaGIBSONU U #: [id number] AGE/SX: 51/M ROOM: RE09/27/21REG DR: Patrice Greco : 68 BED: DIS: STATUS: [place] [facility] [place]: SPEC #: [id number] RECD: 09/27/21 STATUS: JEANNE SOLIS #: [id number] SAM: 09/27/21- SUBM DR: Patrice Greco MD ENTERED: 09/27/21 SP TYPE: SOFTNOTMLD OTHR DR: ORDERED: LEVEL IV CODES: [id number] - SOFT TISSUES, N PROCEDURES: LEVEL IV (Incomplete) TISSUES: SOFT TISSUES, NOS - OLD MESH AND METAL SCREW CLINICAL HISTORY 51 year old, recurrent right inguinal hernia (wpd) FINAL DIAGNOSIS Specimen designated "old mesh and metal screw", excision: - fibrosis and focal chronic inflammation with fabric mesh - metallic specimen designated "screw" - for gross identification only CPT: 63884 cds/wpd GROSS DESCRIPTION ANATOMIC SOURCE OF TISSUE (per Requisition): Old mesh and metal screw The specimen is received in a formalin-filled container labeled with the patient's name and designated "old mesh and metal screw". The specimen consists four pieces of spencer fabric mesh with adhesed red fibrous tissue aggregating to 3.2 x 2.5 x 0.3 cm and a separate dark metallic coil measuring 0.4 cm in diameter and 0.3 cm in length. The fabric mesh with adhesed tissue is sectioned and a technical support representative piece of tissue submitted as A1. The metallic coil is for gross ID only> hz/wpd 09/27/21 MICROSCOPIC DESCRIPTION Sections of tissue attached to fabric mesh show birefringent foreign material consistent with synthetic mesh, as well as fibrosis and mild focal chronic inflammation. cds/wpd CONTINUED ON NEXT PAGE RUN DATE: 10/07/21 [facility] PAGE 2 RUN TIME: 0900 Specimen Inquiry RUN USER: INTERFACE SPEC #: [id number] PATIENT: MER REYES #[id number] (Continued) Signed Luca Clancy 10/05/21 1701 END OF REPORT COVID 19 Asymptomatic IH [id number] 12:38:00 Test Item Value Reference Range Interpretation Comments COVID 19 NEGATIVE NEGATIVE This test has b een Asymptomatic IH AG authorize d only for the (test code = detection ofpro teins from COVNONPUIAG) SARS-CoV-2, not for any other viruses orpathogens. Ne gative results should be treated as presumptive andconfirmed wi th a molecular assay , if necessary for patientmanageme nt. Negative result s do not rule out COVID- 19 andshould not b e used as the sole basis for treatment orpat ient management deci sions, including infec tion controldecision s. Negative result s should be considered i n thecontext of a patient's recent exposure s, history and thepresence of clinical signs and symptoms consis tent withCOVID-19. T his test has not been FD A cleared or approved; th e test hasbeen authori sonny by FDA under an Emerge ncy Use Authorization(E UA) for use by laborato mary certified under the CLIA thatmeet the re quirements to perform mode rate, high or waivedcomple xity tests. This rosa t is authorized for use at thePoint of Car e (POC), i.e., in patien t care settingsoperati ng under a CLIA Certificat e of Waiver, Certifi eduin ofCompliance, o r Certificate of Accreditation. This test is only authori zebritni for the duration of thedeclaration that circumstances e xist justifying theauthorizatio n of emergency use o f in vitro diagnostic test sfor detection and/o r diagnosis of CO VID-19 under Donmywm02 4(b)(1) of the Act, 21 U.S .C. 360bbb-3(b)(1), unless theauthorizatio n is terminated or r evoked sooner. Comments to Cereal Popper: FOR RAPID AND IN-HOUSE COVID TEST TODAYSpecimen Comment: DO NOT SEND OUTBASIC METABOLIC [id number] 12:20:00 Test Item Value Reference Range Interpretation Comments SODIUM (test code = NA) 146 mEq/L 135-145 H POTASSIUM (test code = K) 4.2 mEq/L 3.5-5.0 N CHLORIDE (test code = CL) 107 mEq/L 100-115 N CARBON DIOXIDE (test code = CO2) 28 mEq/L 22-31 N ANION GAP (test code = GAP) 15.00 10-20 N GLUCOSE (test code = GLU) 76 mg/dL 65-110 N BLOOD UREA NITROGEN (test code = 28 mg/dL 7-18 H BUN) GLOMERULAR FILTRATION RATE (test 89 ml/min >60 N code = GFR) CREATININE (test code = CREAT) 0.9 mg/dL 0.7-1.3 N CALCIUM (test code = CA) 9.3 mg/dL 8.4-10.2 N CBC W/AUTO [id number] 12:09:00 Test Item Value Reference Range Interpretation Comments WHITE BLOOD CELL (test code = WBC) 6.8 K/mm3 4.5-11.2 N RED BLOOD CELL (test code = RBC) 6.07 M/mm3 3.42-5.20 H HEMOGLOBIN (test code = HGB) 17.9 g/dL 10.2-14.9 H HEMATOCRIT (test code = HCT) 53.9 % 31.3-44.8 H MEAN CELL VOLUME (test code = MCV) 88.8 fL 81-95 N MEAN CELL HGB (test code = MCH) 29.5 pg 27-34 N MEAN CELL HGB CONCETRATION (test 33.2 gm/dL 32-35 N code = MCHC) RED CELL DISTRIBUTION WIDTH (test 13.0 % 11.8-14.8 N code = RDW) PLATELET COUNT (test code = PLT) 316 K/mm3 135-380 N MEAN PLATELET VOLUME (test code = 9.5 fL 9.1-12.7 N MPV) NEUTROPHIL % (test code = NT%) 48.8 % 51.5-79.7 L LYMPHOCYTE % (test code = LY%) 34.5 % 14-40 N MONOCYTE % (test code = MO%) 12.4 % 4.0-10.2 H EOSINOPHIL % (test code = EO%) 2.8 % 0-4.1 N BASOPHIL % (test code = BA%) 1.2 % 0.1-0.7 H NEUTROPHIL # (test code = NT#) 3.3 K/mm3 LYMPHOCYTE # (test code = LY#) 2.4 K/mm3 MONOCYTE # (test code = MO#) 0.9 K/mm3 EOSINOPHIL # (test code = EO#) 0.19 K/mm3 BASOPHIL # (test code = BA#) 0.1 K/mm3 RBC MORPHOLOGY REQUIRED (test code NORMAL NORMAL = RBCM) PLATELET MORPHOLOGY REQUIRED (test NORMAL NORMAL code = PLTMR) BEDSIDE [id number] 14:40:00 Test Item Value Reference Range Interpretation Comments BEDSIDE CREATININE (test code = 0.4 mg/dL 0.3-1.2 N CREATBED) METER READIN.4eGFR= >60Performed By: JAGDISHDate Performed: 08/30/21Time Performed: 1049- CT ABD PELVIS W/[id number] 00:00:00 [facility] : 1970 Sex: M Patient Name: MER REYES Unit No: [id number] EXAMS: CPT CODE: [id number] CT ABD PELVIS W/CONT 14413 Radiation Dose CTDIVOL = 9.89 (mGy): DLP = 620.3 (mGy-cm) PROCEDURE INFORMATION: Exam: CT Abdomen And PelvisWithout And With Contrast Exam date and time: 08/30/2021 10:51 AM Age: 51 years old Clinical indication: Screening exam; Other: Recurrent RT inguinal hernia vs mass; Prior surgery; Surgery type: 20+ yrs ago RT inguinal hernia repair w mesh TECHNIQUE: Imaging protocol: Computed tomography of the abdomen and pelvis without and with contrast. Radiation optimization: All CT scans at this facility use at least one of these dose optimization techniques: automated exposure control; mA and/or kV adjustment per patient size (includes targeted exams where dose is matched to clinical indication); or iterativereconstruction. Contrast material: ISOVUE 300; Contrast volume: 100 ml; Contrast route: INTRAVENOUS (IV); Other contrast: Oral, GASTROGRAFIN, 40; COMPARISON: No relevant prior studies available. RADIATION DOSE METRICS: CTDI volume (mGy): 9.89 Total DLP (mGy-cm): 620.3 FINDINGS: Lungs: Hypoventilatory changes are present at lung bases. Liver: Decreased attenuation of liver compatible with hepatic steatosis is noted. No focal hepatic mass is seen. Gallbladder and bile ducts: Normal. No calcified stones. No ductal dilation. Pancreas: Normal. No ductal dilation. Spleen: Normal. No splenomegaly. Adrenalglands: Both adrenal glands appear normal. Kidneys and ureters: Right kidney appears normal. There is no evidence of hydronephrosis on the left side. : A 1.8 x 1.4 cm hypodense exophytic left renal mass is identified which deserves further evaluation by means of ultrasound. [facility] as NAME: MER REYES Radiology Department PHYS: Patrice Tse [address] : 1970 AGE: 51 SEX: M [place], [place] [address] LOC: Jeanette.RAD PHONE #: [phone] EXAM DATE: 08/30/2021 STATUS: REG CLI FAX #: [phone] RAD NO: Page 1 Signed Report 1 Patient Name: MER REYES Unit No: [id number] EXAMS: CPT CODE: [id number] CT ABD PELVIS W/CONT 54436 (Continued) Stomach and bowel: Unremarkable. No obstruction. No mucosal thickening. Appendix: No evidence of appendicitis. Intraperitoneal space: Unremarkable. No free air. No significant fluid collection. Vasculature: Un remarkable. No abdominal aortic aneurysm. Lymph nodes: No evidence of retroperitoneal adenopathy is seen. No evidence of pelvic adenopathy is seen. Urinary bladder: Unremarkable as visualized. Reproductive: Unremarkable as visualized. Bones/joints: Unremarkable. No acute fracture. Soft tissues: Postsur gical changes are present in right inguinal region. No definite right inguinal hernia is seen. Otherfindings No abnormal fluid collection is noted. IMPRESSION: 1. No definite evidence of inguinal hernia. Postsurgical changes in right inguinal region are noted. 2. Left renal mass which deserves further evaluation by means of ultrasound for characterization. Alternatively, dedicated computed tomography with renal mass protocol may be performed. 3. Hypoventilatory changes at lung bases. 4. Fatty infiltration of liver. at 1139 Reported and signed by: Jose Juan Washington MD CC: Technologist: Rebecca Quan, RT, CT CTDI: 9.89 DLP: 620.30 Trnscrbd D/T: 1 (1139) GCD.CPS [facility] NAME: MER REYES Radiology Department PHYS: Patrice Tse [address] : 1970 AGE: 51 SEX: M [place] [address] LOC: F.RAD PHONE #: [phone] EXAM DATE: 08/30/2021 STATUS: REG CLI FAX #: [phone] RAD NO: Page 2 Signed Report 1 Patient Name: MER REYES Unit No: [id number] EXAMS: CPT CODE: [id number] CT ABD PELVIS W/CONT 31903 (Continued) Orig Print D/T: S: 08/30/2021 (1139) [facility] NAME: MER REYES Radiology Department PHYS: Patrice Tse [address] : 1970 AGE: 51 SEX: M [place] [address] LOC: F.RAD PHONE #: [phone] EXAM DATE: 08/30/2021 STATUS: REG CLI FAX #: [phone] RAD NO: Page 3 Signed Report [id number] 14:27:38Almaz Anderson CRNA 12/16/2020 8:28 AMAirway Date/Time: 12/16/2020 8:28 AM Location: OR Performed by: JEFF/AAAuthorized by: Angel Martinez MD Urgency: ElectiveDifficult Airway: No Preoxygenated with 100% O2: Yes C-spine Precautions Maintained Throughout: Yes Mask Ventilation: Not attemptedFinal Airway Type: Supraglottic airwayFinal LMA: I-GelLMA Size: 5Number of Attempts at Approach: 1[facility] Lower Extremity External [id number] 20:04:18This exam was not acquired at a [facility] facility and has not been interpreted by a [facility] Provider. The exam was imported into our imaging system.[facility] [id number] 17:26:00 Test Item Value Reference Range Interpretation Comments APPEARANCE (test code = Cloudy Clear A 1444025084) COLOR (test code = Yellow Yellow 0513599039) PH (test code = 4.8-8.0 3465780186) SP GRAVITY (test code = 1.003-1.030 4329574293) GLU U QUAL (test code = Normal Normal 7779325664) BLOOD (test code = 3+ Negative A 0919124601) KETONES (test code = Negative Negative 4484006612) PROTEIN (test code = 30 mg/dL Negative A 2887-8) UROBILIN (test code = Normal Normal 7472289057) BILIRUBIN (test code = Negative Negative 8863606709) NITRITE (test code = Negative Negative 8395133464) LEUK AUNDREA (test code = Negative Negative 3787683287) RBC/HPF (test code = See_Comment H [Autom ated message] 9651108215) The system [employer] generated this result transmitted ref erence range: 0 - 3 HP F. The reference range was not used to int erpret this result as normal/abnormal . WBC/HPF (test code = See_Comment [Autom ated message] 9635888005) The system [employer] generated this result transmitted ref erence range: 0 - 5 HP F. The reference range was not used to int erpret this result as normal/abnormal . BACTERIA (test code = Moderate Negative A 1416494044) MUCOUS (test code = Moderate Negative LPF A 7652546869) AMORPHOUS (test code = Few Rare HPF A 3139837897) SQ EPITH (test code = <1 HPF 4256040542) Lab Interpretation (test Abnormal code = 55921-6) [facility]. METABOLIC PANEL (62591)2020-10-16 17:14:00 Test Item Value Reference Range Interpretation Comments NA (test code = 140 mmol/L 135-145 0243922439) K (test code = 4.4 mmol/L 3.5-5 6179286993) CL (test code = 104 mmol/L 98-108 7796737661) CO2 TOTAL (test code = 26 mmol/L 23-31 4948902627) AGAP (test code = 2-16 2549512169) BUN (test code = 39 mg/dL 7-23 H 5162674667) GLUCOSE (test code = 134 mg/dL 70-110 H 0210099192) CREATININE (test code = 1.13 mg/dL 0.6-1.25 4883571709) TOTAL BILI (test code = 1.0 mg/dL 0.1-1.2 4100637136) CALCIUM (test code = 9.9 mg/dL 8.6-10.6 3789972414) T PROTEIN (test code = 7.5 g/dL 6.3-8.2 9454793108) ALBUMIN (test code = 4.6 g/dL 3.5-5 2472833625) ALK PHOS (test code = 87 U/L 34-122 0257879745) ALTv (test code = 81 U/L 5-50 H 1742-6) AST(SGOT) (test code = 52 U/L 13-40 H 3800274527) eGFR Calculation mL/min/1.73m2 (Non-) (test code = 3878683357) eGFR Calculation mL/min/1.73m2 () (test code = 4585694673) CLAUDY (test code = CLAUDY) Association of Glomerular Filtration Rate (GFR) and Staging of Kidney Disease* + --+ --+ ------+| GFR (mL/min/1.73 m2) ?| With Kidney Damage ?| ?Without Kidney Damage+ --------+ --------+ +| ?>90 ?| ?Stage one ?| ? Normal ?+ ---+ ---+ -------+| ?60-89 ?| ?Stage two ?| ? Decreased GFR ? + --+ --+ ------+| ?30-59 ?| ?Stage three ?| ? Stage three ? + --+ --+ ------+| ?15-29 ?| ?Stage four ? | ? Stage four ?+ ---+ ---+ -------+| ?<15 (or dialysis) ? ?| ?Stage five ? | ? Stage five ?+ ---+ ---+ -------+ *Each stage assumes the associated GFR level has been in effect for at least three months. ?Stages 1 to 5, with or without kidney disease, indicate chronic kidney disease. Notes: Determination of stages one and two (with eGFR >59mL/min/1.73 m2) requires estimation of kidney damage for at least three months as defined by structural or functional abnormalities of the kidney, manifested by either:Pathological abnormalities or Markers of kidney damage (including abnormalities in the composition of the blood or urine or abnormalities in imaging tests). Lab Interpretation Abnormal (test code = 19865-0) [facility] acute hospital WITH [id number] 16:50:00 Test Item Value Reference Range Interpretation Comments WBC (test code = See_Comment [Automated 2990-2) message] The sy stem which generated this result transmitted reference range : 4.20 - 10.70 10*3/?L. The reference range was not used to interpret this result as normal/abnormal . RBC (test code = See_Comment H [Automated 399-8) message] The sy stem which generated this result transmitted reference range : 4.26 - 5.52 10*6/?L. The reference range was not used to interpret this result as normal/abnormal . HGB (test code = 17.4 g/dL 12.2-16.4 H 718-7) HCT (test code = 51.8 % 38.4-49.3 H 4544-3) MCV (test code = 87.6 fL 81.7-95.6 787-2) MCH (test code = 29.4 pg 26.1-32.7 785-6) MCHC (test code = 33.6 g/dL 31.2-35 786-4) RDW-SD (test code = 41.9 fL 38.5-51.6 26211-4) RDW-CV (test code = 13.0 % 12.1-15.4 788-0) PLT (test code = See_Comment H [Automated 777-3) message] The sy stem which generated this result transmitted reference range : 150 - 328 10*3/ ?L. The reference r gee was not used to interpret this result as normal/abnormal . MPV (test code = 8.9 fL 9.8-13 L 10961-5) NRBC/100 WBC (test See_Comment [Automat ed code = 3498601083) message] The system which generated this result transmitted reference range : 0.0 - 10.0 /100 WBCs. The refer ence range was not u sed to interpret th is result as normal/abnormal . NRBC x10^3 (test code <0.01 See_Comment [Auto mated = 9485952915) message] The s ystem which generated this result transmitted reference range : 10*3/?L. The reference range was not used to interpret this result as normal/abnormal . GRAN MAT (NEUT) % 76.1 % (test code = 770-8) IMM GRAN % (test code 0.40 % = 4854700730) LYMPH % (test code = 14.9 % 736-9) MONO % (test code = 7.3 % 5905-5) EOS % (test code = 0.6 % 713-8) BASO % (test code = 0.7 % 706-2) GRAN MAT x10^3(ANC) 7.54 10*3/uL 1.99-6.95 H (test code = 1993750763) IMM GRAN x10^3 (test 0.04 10*3/uL 0-0.06 code = 5725744281) LYMPH x10^3 (test code 1.48 10*3/uL 1.09-3.23 = 731-0) MONO x10^3 (test code 0.72 10*3/uL 0.36-1.02 = 742-7) EOS x10^3 (test code = 0.06 10*3/uL 0.06-0.53 711-2) BASO x10^3 (test code 0.07 10*3/uL 0.01-0.09 = 704-7) Lab Interpretation Abnormal (test code = 86479-4) [facility] Joint Arthrocentesis: knee, R knee 2020-09-19 14:20:00Brandan Slaughter MD 09/19/2020 12:55 PMLarge Joint Arthrocentesis: knee, R kneeSupporting DocumentationIndications: pain Procedure DetailsLocation: knee - R knee Right side:Approach: anteromedialRight knee medications administered: 2 mL lidocaine 10 mg/mL (1 %); 6 mg betamethasone acetate & sodium phosphate 6 mg/mL (The patient will apply ice to the injected area today and use OTC meds as needed for injection pain. We discussed potential risks to include infection, pain, ineffectuality, fat atrophy, skin pigmentation loss, and need for more treatment.)[facility]
[2022-08-07 13:38] LABS: Absolute Lymphocytes (CBC) 1.8 K/uL (0.7-4.9); Hematocrit 50.7 % (39.6-49.0); Lymphocytes % 21.9 % (15.3-44.8); MCV 85.2 fL (80-100); MPV 6.7 fL (7.6-11.3); RBC Red Blood Cell Count 5.95 M/uL (4.33-5.43)
[2022-08-07 13:54] LABS: Albumin 3.4 g/dL (3.4-5.0); Bilirubin Total 0.9 mg/dL (0.2-1.0); Potassium 3.5 mmol/L (3.5-5.1); Protein, Total 7.2 g/dL (6.4-8.2)
--- NOTE | 2022-08-07 14:27 | RAD REPORT ---
EXAM DESCRIPTION: CT - Abdomen Pelvis W Contrast - 08/07/2022 2:12 pm CLINICAL HISTORY: Abdominal pain COMPARISON: none. TECHNIQUE: Computed axial tomography of the abdomen pelvis was obtained. 100 cc Isovue-300 was admin istered intravenously. Oral contrast was not requested which limits evaluation of bowel and appendix All CT scans are performed using dose optimization technique as appropriate and may include automated exposure control or mA/KV adjustment according to patient size. FINDINGS: Fatty liver 1 centimeter area of increased density within anterior segment right lobe. Increased density within gallbladder Spleen, pancreas, adrenals are unremarkable 2.1 centimeter left renal mass. Hounsfield unit 31. Tiny right renal cysts There is no evidence of diverticulitis. Normal appendix. Several loops of jejunum are moderately dilated. Small left inguinal hernia contains fat Small amount of pelvic ascites IMPRESSION: Moderate dilatation of several loops of jejunum probably representing inflammation. An e jessica/partial obstruction can also have this appearance. If the patient's symptoms persist follow-up p jaz film series would be recommended 1 centimeter area of increased density within liver is nonspecific but probably benign. Follow-up hep at ultrasound in 3 months recommended. Increased density within the gallbladder may represent sludge or vicarious excretion of contrast Small amount ascites
[2022-08-07 14:32] LABS: Urine Blood 2+ (Negative); Urine Glucose Negative (Negative); Urine Protein 1+ (Negative); Urine pH 5.5 (5.0-7.0)
[2022-08-07] MEDS ORDERED: metroNIDAZOLE 500 MG TABLET ONE (15:17)
[2022-08-07] MEDS ORDERED: CIPROFLOXACIN HCL 500 MG TAB ONE (15:17)
--- NOTE | 2022-08-07 15:44 | EDPHYS ---
Physician Documentation [facility] Name: Edgard Oneil Age: 52 yrs Sex: Male : 1970 Arrival Date: 08/07/2022 Time: 11:38 Bed 11 Private MD: Mary Arzate K ED Physician Rochelle Zapata HPI: 08/07 13:05 This 52 yrs old Male presents to ER via Ambulatory with complaints of Dehydration,Heart jmm Rate Elevated. 13:05 The patient presents with abdominal pain. Onset: The symptoms/episode began/occurred jmm gradually, 1 week(s) ago. The symptoms do not radiate. Is a 52-year-old male with history of acid reflux the presents emerged part with complaints of lower abdominal/suprapubic abdominal pain and approximately week ago along with multiple episodes of vomiting and diarrhea. Patient was evaluated at another emergency department and diagnosed with an enteritis. Patient states he continues to have lower abdominal pain. Was advised by his PCP to go to the ER for reevaluation.. 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 - Social history:: Smoking status: Patient denies any tobacco usage or history of. ROS: 13:05 Constitutional: Negative for fever, chills, and weight loss, Cardiovascular: Negative jmm for chest pain, palpitations, and edema, Respiratory: Negative for shortness of breath, cough, wheezing, and pleuritic chest pain. 13:05 Abdomen/GI: Positive for abdominal pain, nausea and vomiting, diarrhea. 13:05 All other systems are negative. Exam: 13:05 Constitutional: This is a well developed, well nourished patient who is awake, alert, jmm and in no acute distress. Head/Face: atraumatic. Eyes: EOMI, no conjunctival erythema appreciated ENT: Moist Mucus Membranes Neck: Trachea midline, Supple Chest/axilla: Normal chest wall appearance and motion. Cardiovascular: Regular rate and rhythm. No edema appreciated Respiratory: Normal respirations, no respiratory distress appreciated 13:05 Back: Normal ROM Skin: General appearance color normal MS/ Extremity: Moves all extremities, no obvious deformities appreciated, no edema noted to the lower extremities Neuro: Awake and alert Psych: Behavior is normal, Mood is normal, Patient is cooperative and pleasant 13:05 Abdomen/GI: Inspection: abdomen appears normal, Bowel sounds: normal, Palpation: soft, mild abdominal tenderness, in the suprapubic area, right lower quadrant and left lower quadrant. Vital Signs: 12:40 BP 112 / 83; Pulse 102; Resp 18; Temp 98.2; Pulse Ox 98% ; Weight 99.79 kg; Height 6 [facility] ft. 2 in. (187.96 cm); Pain 4/10; 12:40 Body Mass Index 28.25 (99.79 kg, 187.96 cm) [facility] MDM: 13:05 Patient medically screened. [facility] 15:20 Data reviewed: vital signs, nurses notes. [facility] 15:43 Counseling: I had a detailed discussion with the patient and/or guardian regarding: the [facility] historical points, exam findings, and any diagnostic results supporting the discharge/admit diagnosis, lab results, radiology results, the need for outpatient follow up, to return to the emergency department if symptoms worsen or persist or if there are any questions or concerns that arise at home. ED course: Feeling much better. Is able to tolerate p.o. I did advise the patient that he would need to follow-up with the gastroenterology, patient stated this is occurred multiple times. Patient may have an underlying inflammatory bowel condition. Patient otherwise given strict return precautions. Patient understood and agreed with the plan of care. 08/07 13:07 Order name: CBC with Diff; Complete Time: 13:45 [facility] 08/07 13:07 Order name: CMP; Complete Time: 13:57 [facility] 08/07 13:07 Order name: Lipase; Complete Time: 13:57 [facility] 08/07 13:07 Order name: CT Abd/Pelvis - IV Contrast Only; Complete Time: 14:43 [facility] 08/07 14:32 Order name: Urine Dipstick-Ancillary; Complete Time: 14:43 [facility] 08/07 13:07 Order name: IV Saline Lock; Complete Time: 14:28 [facility] 08/07 13:07 Order name: Labs collected and sent; Complete Time: 14:28 [facility] 08/07 13:07 Order name: Urine Dipstick-Ancillary (obtain specimen); Complete Time: 14:28 [facility] Administered Medications: 14:50 Drug: NS 0.9% 1000 ml Route: IV; Rate: 1 bolus; Site: right antecubital; ap3 15:58 Follow up: IV Status: Completed infusion; IV Intake: 1000ml ap3 14:50 Drug: Pepcid (famotidine) 20 mg Route: IVP; Site: right antecubital; ap3 15:04 Follow up: Response: No adverse reaction ap3 14:51 Drug: Zofran (Ondansetron) 4 mg Route: IVP; Site: right antecubital; ap3 15:04 Follow up: Response: No adverse reaction ap3 15:10 Drug: Cipro (ciprofloxacin) 500 mg Route: PO; ap3 15:58 Follow up: Response: No adverse reaction ap3 15:10 Drug: Flagyl (metroNIDAZOLE) 500 mg Route: PO; ap3 15:57 Follow up: Response: No adverse reaction ap3 Disposition Summary: 08/07/22 15:44 Discharge Ordered Location: Home [facility] Condition: Stable [facility] Diagnosis - Vomiting jmm - Diarrhea, unspecified jmm - Abdominal pain, unspecified jmm Followup: [facility] - With: Private Physician - When: 2 - 3 days - Reason: Recheck today's complaints, Continuance of care, Re-evaluation by your physician Discharge Instructions: - Discharge Summary Sheet [facility] - Abdominal Pain, Adult jm - Food Choices to Help Relieve Diarrhea, Adult jmm - Diarrhea, Adult [facility] Forms: - Medication Reconciliation Form [facility] - Thank You Letter [facility] - Antibiotic Education [facility] - Prescription Opioid Use [facility] Prescriptions: - Cipro 500 mg Oral Tablet - take 1 tablet by ORAL route every 12 hours for 10 days; 20 tablet; Refills: 0, [facility] Product Selection Permitted - Flagyl 500 mg Oral Tablet - take 1 tablet by ORAL route every 6 hours for 10 days; 40 tablet; Refills: 0, [facility] Product Selection Permitted - promethazine 25 mg Oral Tablet - take 1 tablet by ORAL route every 6 hours As needed; 20 tablet; Refills: 0, [facility] Product Selection Permitted Signatures: Dispatcher [employer] Mor Hernandez PA PA Marina Rios RN RN ap3 Arash, Deanne, RN RN jh5
--- NOTE | 2022-08-07 15:44 | ER ---
Nurse's Notes [facility] Name: Edgard Oneil Age: 52 yrs Sex: Male : 1970 Arrival Date: 08/07/2022 Time: 11:38 Bed 11 Private MD: Mary Arzate K Diagnosis: Vomiting;Diarrhea, unspecified;Abdominal pain, unspecified Presentation: 08/07 12:40 Chief complaint: Patient states: diarrhea and vomiting x1 week, suprapubic pain, went [address] and she thinks that he has infection, sent him here. Coronavirus screen: Vaccine status: Patient reports receiving the 2nd dose of the covid vaccine. Client denies travel out of the [place] in the last 14 days. Ebola Screen: Patient negative for fever greater than or equal to 101.5 degrees Fahrenheit, and additional compatible Ebola Virus Disease symptoms Patient denies exposure to infectious person. Patient denies travel to an Ebola-affected area in the 21 days before illness onset. Initial Sepsis Screen: Does the patient meet any 2 criteria? No. Patient's initial sepsis screen is negative. Does the patient have a suspected source of infection? No. Patient's initial sepsis screen is negative. Risk Assessment: Do you want to hurt yourself or someone else? Patient reports no desire to harm self or others. 12:40 Method Of Arrival: Ambulatory [facility] 12:40 Acuity: JANAE 3 [facility] 14:52 Onset of symptoms is unknown. ap3 Triage Assessment: 12:42 General: Appears uncomfortable, slender, well groomed, well developed, Behavior is [facility] calm, cooperative, appropriate for age. Pain: Complains of pain in abdomen. 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 - Social history:: Smoking status: Patient denies any tobacco usage or history of. Screenin:51 Abuse screen: Denies threats or abuse. Nutritional screening: Has had N/V for 3 or more ap3 days. Tuberculosis screening: No symptoms or risk factors identified. Fall Risk None identified. Assessment: 14:51 General: Appears in no apparent distress. Behavior is calm, cooperative, appropriate ap3 for age. Pain: Complains of pain in abdomen. Neuro: Level of Consciousness is awake, alert, obeys commands, Oriented to person, place, time, situation, Appropriate for age Gait is steady, Speech is normal. Cardiovascular: Patient's skin is warm and dry. Respiratory: Airway is patent Respiratory effort is even, unlabored, Respiratory pattern is regular, symmetrical. GI: Reports diarrhea, nausea, vomiting. Vital Signs: 12:40 BP 112 / 83; Pulse 102; Resp 18; Temp 98.2; Pulse Ox 98% ; Weight 99.79 kg; Height 6 [facility] ft. 2 in. (187.96 cm); Pain 4/10; 12:40 Body Mass Index 28.25 (99.79 kg, 187.96 cm) 5 ED Course: 11:38 Patient arrived in ED. mr 11:39 Mary Arazte MD is Private Physician. mr 12:01 Mor Crawley [facility] 12:01 Rochelle Zapata MD is Attending Physician. [facility] 12:42 Triage completed. 5 12:42 Arm band placed on right wrist. 5 14:14 CT Abd/Pelvis - IV Contrast Only In Process Unspecified. EDMS 14:26 Marina Cummins, ALEXIA is Primary Nurse. ap3 14:51 Patient has correct armband on for positive identification. Bed in low position. Call ap3 light in reach. Side rails up X2. Pulse ox on. NIBP on. Door closed. Noise minimized. Warm blanket given. 14:51 No provider procedures requiring assistance completed. ap3 15:57 IV discontinued, intact, bleeding controlled, No redness/swelling at site. Pressure ap3 dressing applied. Administered Medications: 14:50 Drug: NS 0.9% 1000 ml Route: IV; Rate: 1 bolus; Site: right antecubital; ap3 15:58 Follow up: IV Status: Completed infusion; IV Intake: 1000ml ap3 14:50 Drug: Pepcid (famotidine) 20 mg Route: IVP; Site: right antecubital; ap3 15:04 Follow up: Response: No adverse reaction ap3 14:51 Drug: Zofran (Ondansetron) 4 mg Route: IVP; Site: right antecubital; ap3 15:04 Follow up: Response: No adverse reaction ap3 15:10 Drug: Cipro (ciprofloxacin) 500 mg Route: PO; ap3 15:58 Follow up: Response: No adverse reaction ap3 15:10 Drug: Flagyl (metroNIDAZOLE) 500 mg Route: PO; ap3 15:57 Follow up: Response: No adverse reaction ap3 Medication: 14:52 VIS not applicable for this client. ap3 Intake: 15:58 IV: 1000ml; Total: 1000ml. ap3 Outcome: 15:44 Discharge ordered by . donna 15:57 Discharged to home ambulatory. ap3 15:57 Condition: good 15:57 Discharge instructions given to patient, Instructed on discharge instructions, follow up and referral plans. medication usage, Demonstrated understanding of instructions, follow-up care, medications, Prescriptions given X 3. 15:58 Patient left the ED. ap3 Signatures: Dispatcher [employer] EDMS Mor Crawley PA PA jmm Rivera, Mary mr Marina Cummins RN RN ap3 Deanne Antoine RN RN jh5
[2022-08-08 18:12] VITALS: BP 112/83; TEMP 98.2; O2SAT 98
== END 2022-08-07 15:58 | disposition home or self-care (01) ==
LOC: ER 11:36
DX: R11.10 Vomiting, unspecified (principal); R19.7 Diarrhea, unspecified; R10.30 Lower abdominal pain, unspecified
CPT/HCPCS: 85025; 36415; 81003; 83690; 80053; 74177; Q9967; 96361; 96374; 96375; 99284